=== PATIENT | male | born 1995 | race Caucasian/White ===

== ENCOUNTER 2020-03-23 22:58 | Emergency (ER) | payer SELFPAY ==
[~2020-03-23] VITALS: Ht 167.6 cm; Wt 66.0 kg
[2020-03-23] MEDS ORDERED: TETANUS, DIPHTHERIA, PERTUSSIS VAC/PF 0.5ML (>7YR OLD) IM ONE (23:30)
[2020-03-23] MEDS ORDERED: LIDOCAINE HCL/EPINEPHRINE 1%-EPI 1:100,000 20 ML VIAL INFIL ONE (23:30)
[2020-03-23] MEDS ORDERED: HYDROCODONE/ACETAMINOPHEN 5/325MG TABLET PO ONE (23:45)
[2020-03-24 01:00] VITALS: BP 131/74
== END 2020-03-24 01:02 | disposition home or self-care (01) ==
LOC: ER 23:33
DX: S01.81XA Laceration without foreign body of other part of head, initial encounter (principal); Y08.89XA Assault by other specified means, initial encounter; Y93.89 Activity, other specified; Y92.89 Other specified places as the place of occurrence of the external cause; Y99.8 Other external cause status
CPT/HCPCS: 12011; 90471; 90715; 99283; J3490

== ENCOUNTER 2020-03-25 13:46 | Emergency (ER) | payer MEDICAID ==
[~2020-03-25] VITALS: Ht 165.1 cm; Wt 75.0 kg
[2020-03-25] MEDS ORDERED: TRAMADOL HCL/ACETAMINOPHEN 37.5/325MG TABLET PO ONE (14:30)
[2020-03-25] MEDS ORDERED: CEFAZOLIN SODIUM 1000MG/VIAL IM ONE (14:30)
[2020-03-25] MEDS ORDERED: ACETAMINOPHEN 325MG TABLET PO ONE (14:45)
[2020-03-25] MEDS ORDERED: TRAMADOL 50MG TABLET PO ONE (14:45)
[2020-03-25 21:21] VITALS: BP 140/80
== END 2020-03-25 21:28 | disposition left against medical advice (07) ==
LOC: ER 13:49
DX: S01.81XA Laceration without foreign body of other part of head, initial encounter (principal); L02.01 Cutaneous abscess of face; K11.20 Sialoadenitis, unspecified; X99.8XXA Assault by other sharp object, initial encounter; Y93.89 Activity, other specified; Y92.018 Other place in single-family (private) house as the place of occurrence of the external cause
CPT/HCPCS: 70486; 96372; 99284; J0690